=== PATIENT | male | born 1960 | race Caucasian/White ===

== ENCOUNTER → 2019-09-07 08:36 | Outpatient (BNVA) | payer BC, SELFPAY | PROVIDERS: Family Provider Nurse Practitioner; PCP Nurse Practitioner; Visit Provider Nurse Practitioner | DX: E11.9 Type 2 diabetes mellitus without complications (principal) | CPT/HCPCS: 80053; 80061; 83036 ==

== ENCOUNTER → 2020-01-25 08:40 | Outpatient (BNVA) | payer BC, SELFPAY | PROVIDERS: Family Provider Nurse Practitioner; PCP Nurse Practitioner; Visit Provider Nurse Practitioner | DX: E11.65 Type 2 diabetes mellitus with hyperglycemia (principal); I10 Essential (primary) hypertension | CPT/HCPCS: 80053; 80061; 83036 ==

== ENCOUNTER → 2020-01-26 09:15 | Outpatient (BNVA) | payer BC, SELFPAY | PROVIDERS: Family Provider Nurse Practitioner; PCP Nurse Practitioner; Visit Provider Nurse Practitioner | DX: I10 Essential (primary) hypertension (principal); E11.65 Type 2 diabetes mellitus with hyperglycemia; F31.9 Bipolar disorder, unspecified; G25.81 Restless legs syndrome; E78.00 Pure hypercholesterolemia, unspecified; I25.2 Old myocardial infarction; M54.12 Radiculopathy, cervical region; R53.83 Other fatigue; Z87.891 Personal history of nicotine dependence; Z12.5 Encounter for screening for malignant neoplasm of prostate; Z11.59 Encounter for screening for other viral diseases | CPT/HCPCS: 82607; 84443; 85025; 86705; 86706; 86709; 86803; 87340; G0103 ==

== ENCOUNTER → 2020-02-22 09:54 | Outpatient (BNVA) | payer BC, SELFPAY | PROVIDERS: Family Provider Nurse Practitioner; PCP Nurse Practitioner; Visit Provider Nurse Practitioner | DX: M54.12 Radiculopathy, cervical region (principal); Z87.891 Personal history of nicotine dependence; G89.29 Other chronic pain | CPT/HCPCS: 71046; 72040 ==

== ENCOUNTER 2020-03-07 06:51 | Outpatient (CLI) | payer BC, SELFPAY ==
[2020-03-07 06:53] VITALS: BMI 26.4
--- NOTE | 2020-03-07 06:54 | ECG_ITS ---
[facility] Test Date: 2020-03-07 Pat Name: Gerson Julian Department: Room: Gender: Male Internet Marketing Manager: : 1960 Requested By: Pravin Luevano Order Number: [id number] Christensen MD: Pravin Luevano M.D. Interpretive Statements NAME OF STUDY: LEXISCAN SESTAMIBI STRESS TEST INDICATION: Chest Pain; Shortness of Breath NOTE: Please note that this is the electrocardiogram portion of the Lexiscan/Sestamibi stress test. The perfusion scan will be documented separately. DATA: Baseline heart rate was 51 beats per minute. Baseline blood pressure was 118/78 millimeters of mercury. Target heart rate was 161. Maximum heart rate achieved was 87. which was 54 % of the predicted target heart rate. Maximum blood pressure was 147/88 millimeters of mercury. The reason for ending the test was completion of the protocol. The patient did not experience any symptoms. ELECTROCARDIOGRAM: BASELINE: Sinus bradycardia. Normal axis. Otherwise, no ST-T changes suggestive of ischemia noted. No arrhythmia noted. EXERCISE: After Lexiscan injection, no ST-T changes suggestive of ischemic noted. No arrhythmia noted. 1. EKG is not suggestive of ischemia 2. Lexiscan injection unremarkable. 3. Perfusion scan will be documented separately. Electronically Signed On 03-07-2020 20:13:56 CDT by Pravin Luevano M.D. [email or web address]
--- NOTE | 2020-03-07 06:55 | NMCV_ITS ---
NM corrie perf SPECT r/s* [id number] White, Gerson Age: 59 Gender: M : 1960 Exam Date: 03/07/2020 07:46 Ordering Phys: Pravin Luevano MD ([email or web address]) Technologist: LAMINE Brennan Exam Location: [facility] Indications: SHORTNESS OF BREATH STRESS TEST Please see separate stress test report in [facility] for full findings IMAGE PROTOCOL Rest/Stress 1 Lexiscan Day Radiopharmaceutical Dose (mCi) Administration Site Administered by Rest: Tc-99m 10.9 IV LAMINE Deluca Sestamibi Stress:Tc-99m 32.9 IV LAMINE Deluca Sestamibi Rest: 07-Mar-2020 60 Discovery 630 Stress: 07-Mar-2020 30 Discovery 630 0.4mg Lexiscan. Images obtained in supine and prone position. SPECT RESULTS Technical Quality: Excellent Raw Data Analysis: Normal Image Corrections: No attenuation or motion correction applied Summed Stress Score: 0 Summed Rest Score: 0 Summed Difference Score: 0 PERFUSION FINDINGS SPECT images demonstrate homogeneous tracer distribution throughout the myocardium. FUNCTIONAL RESULTS (calculated via Gated SPECT) Stress Image LV EF (%): 60 Stress EDV (mL):86 TID: 0.87 Stress ESV (mL):34 Rest Image LV EF (%): 60 FUNCTIONAL FINDINGS: There is normal left ventricular systolic function. IMPRESSIONS Myocardial perfusion imaging is normal. EKG segment will be documented separately. Pravin Luevano MD (Electronically Signed) Final Date: 07 March 2020 19:59 S
[2020-03-07] MEDS: regadenoson 0.4 Mg/5 ml Syringe IVP (08:35)
--- NOTE | 2020-03-07 08:35 | SUR.PREOP ---
PATIENT REPORTS NO PAIN OR DISCOMFORT PRIOR TO THE START OF THE PROCEDURE.
[2020-03-07 09:21] VITALS: BP 128/78; PULSE 74
== END 2020-03-07 06:52 | disposition home or self-care (01) ==
PROVIDERS: PCP Nurse Practitioner; Visit Provider Internal Medicine Cardiovascular Disease
DX: R06.02 Shortness of breath (principal); R07.2 Precordial pain
CPT/HCPCS: 78452; 93017; A9500; J2785

== ENCOUNTER → 2020-05-10 11:03 | Outpatient (BNVA) | payer BC, SELFPAY | PROVIDERS: PCP Nurse Practitioner; Visit Provider Nurse Practitioner | DX: M79.604 Pain in right leg (principal) | CPT/HCPCS: 73562; 73610; 73630 ==

== ENCOUNTER → 2020-09-13 11:09 | Outpatient (BNVA) | payer OTHER, SELFPAY | PROVIDERS: PCP Nurse Practitioner; Visit Provider Nurse Practitioner | DX: E11.65 Type 2 diabetes mellitus with hyperglycemia (principal); I10 Essential (primary) hypertension; F31.9 Bipolar disorder, unspecified; G25.81 Restless legs syndrome; E78.00 Pure hypercholesterolemia, unspecified; I25.2 Old myocardial infarction; M54.12 Radiculopathy, cervical region | CPT/HCPCS: 73030; 80053; 80061; 81000; 82043; 83036 ==

== ENCOUNTER → 2021-03-27 11:04 | Outpatient (BNVA) | payer OTHER, SELFPAY | PROVIDERS: PCP Nurse Practitioner; Visit Provider Nurse Practitioner | DX: I10 Essential (primary) hypertension (principal); F31.9 Bipolar disorder, unspecified; E55.9 Vitamin D deficiency, unspecified; E78.00 Pure hypercholesterolemia, unspecified; I25.2 Old myocardial infarction; G25.81 Restless legs syndrome; M54.12 Radiculopathy, cervical region; E11.65 Type 2 diabetes mellitus with hyperglycemia | CPT/HCPCS: 80053; 80061; 83036; 83735; 84443 ==

== ENCOUNTER → 2021-09-23 09:14 | Outpatient (BNVA) | payer OTHER, SELFPAY | PROVIDERS: PCP Nurse Practitioner; Visit Provider Nurse Practitioner | DX: E11.65 Type 2 diabetes mellitus with hyperglycemia (principal); F31.9 Bipolar disorder, unspecified; E78.00 Pure hypercholesterolemia, unspecified; I10 Essential (primary) hypertension; I25.2 Old myocardial infarction; G25.81 Restless legs syndrome; M54.12 Radiculopathy, cervical region | CPT/HCPCS: 80053; 80061; 81000; 82043; 83036 ==

== ENCOUNTER → 2022-03-11 09:19 | Outpatient (BNVA) | payer OTHER, SELFPAY | PROVIDERS: PCP Nurse Practitioner; Visit Provider Nurse Practitioner | DX: F31.9 Bipolar disorder, unspecified (principal); E78.00 Pure hypercholesterolemia, unspecified; I10 Essential (primary) hypertension; I25.2 Old myocardial infarction; G25.81 Restless legs syndrome; M54.12 Radiculopathy, cervical region | CPT/HCPCS: 80053; 80061; 82043; 83036 ==

== ENCOUNTER 2022-05-18 16:10 | Emergency (ER) | payer OTHER, SELFPAY ==
[2022-05-18 16:12] VITALS: BP 128/74; PULSE 63; RESP 16; TEMP 36.8; O2SAT 97; BMI 23.2
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
[2022-05-18 16:54] VITALS: BP 121/78; PULSE 78; RESP 16; O2SAT 98
== END 2022-05-18 16:55 | disposition home or self-care (01) ==
PROVIDERS: Emergency Provider Emergency Medicine; PCP Nurse Practitioner
DX: T24.331A Burn of third degree of right lower leg, initial encounter (principal); X17.XXXA Contact with hot engines, machinery and tools, initial encounter; L08.9 Local infection of the skin and subcutaneous tissue, unspecified; Z79.82 Long term (current) use of aspirin; Z87.891 Personal history of nicotine dependence; E11.9 Type 2 diabetes mellitus without complications; I10 Essential (primary) hypertension; I25.2 Old myocardial infarction
CPT/HCPCS: 99283

== ENCOUNTER → 2024-04-12 15:15 | Outpatient (BNVA) | payer BC, SELFPAY | PROVIDERS: PCP Nurse Practitioner; Visit Provider Nurse Practitioner | DX: I10 Essential (primary) hypertension (principal); E55.9 Vitamin D deficiency, unspecified | CPT/HCPCS: 80053; 80061; 82306; 82607; 84443; 85025 ==

== ENCOUNTER → 2024-05-05 08:09 | Outpatient (BNVA) | payer BC, SELFPAY | PROVIDERS: PCP Nurse Practitioner; Visit Provider Nurse Practitioner | DX: I10 Essential (primary) hypertension (principal); E55.9 Vitamin D deficiency, unspecified; E11.65 Type 2 diabetes mellitus with hyperglycemia | CPT/HCPCS: 83036; 85025 ==

== ENCOUNTER → 2024-07-26 10:50 | Outpatient (BNVA) | payer BC, MEDICAID, SELFPAY | PROVIDERS: PCP Nurse Practitioner; Visit Provider Nurse Practitioner | DX: E11.9 Type 2 diabetes mellitus without complications | CPT/HCPCS: 80053; 80061; 83036 ==

== ENCOUNTER → 2024-11-29 12:03 | Outpatient (BNVA) | payer BC, MEDICAID, SELFPAY | PROVIDERS: PCP Nurse Practitioner; Visit Provider Nurse Practitioner | DX: I10 Essential (primary) hypertension (principal); E11.65 Type 2 diabetes mellitus with hyperglycemia; Z12.5 Encounter for screening for malignant neoplasm of prostate | CPT/HCPCS: 80053; 80061; 83036; G0103 ==